=== PATIENT | male | born 1970 | race Caucasian/White ===

== ENCOUNTER 2018-04-14 10:47 | Emergency (ER) | payer SELFPAY, MEDICAID ==
[2018-04-14] MEDS: predniSOLONE (3 MG/ML) CUP PO (11:38)
== END 2018-04-14 12:11 | disposition home or self-care (01) ==
LOC: FTE 10:47
DX: B00.9 Herpesviral infection, unspecified (principal); R22.0 Localized swelling, mass and lump, head; I10 Essential (primary) hypertension
CPT/HCPCS: 99283